=== PATIENT | male | born 1985 | race Caucasian/White ===

== ENCOUNTER 2023-10-09 11:34 | Emergency (ER) | payer SELFPAY ==
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
== END 2023-10-09 13:13 | disposition home or self-care (01) ==
LOC: ED 13:13
PROVIDERS: Emergency Provider Emergency Medicine; Visit Provider Emergency Medicine
DX: Z00.00 Encounter for general adult medical examination without abnormal findings (principal)